=== PATIENT | male | born 1960 | race African-American/Black ===

== ENCOUNTER 2018-04-14 20:54 | Emergency (ER) | payer OTHER ==
[~2018-04-14] VITALS: Ht 170.2 cm; Wt 81.6 kg
[2018-04-14] MEDS ORDERED: IPRATRPIUM/ALBUTEROL 0.5/2.5MG 3 ML NEBU. NEB ONE (21:15)
--- NOTE | 2018-04-14 21:19 | PHYS DOC ---
Past History Past Medical History: High Cholesterol, Hyperthyroid Past Surgical History: No Surgical History Smoking: Quit Greater Than 1 Year (quit in his early 20s) Alcohol Use: None Drug Use: None Adult General Chief Complaint Chief Complaint: COUGH HPI HPI The patient is a very pleasant 57-year-old male who presents to the emergency department for evaluation. He lives near [facility] in [place], and is in this area since this past Thursday, for a conference. He states for the past month, he has had a cough, productive of small amounts of sputum, which she mostly swallows. He has not had any hemoptysis. He states he has had occasional shortness of breath with significant exertion. He denies having had any pain at all, other than a mild frontal headache when he has paroxysms of coughing, and specifically denies having had any chest pain, pleuritic, exertional, or otherwise. Laying flat does not seem to worsen or improve his symptoms. He has not had any nasal congestion. He has not had any fevers or chills. He was given a Z-Osmani about a month ago, as well as some Claritin for possible allergic etiology, but that did not significantly affect his symptoms. He has no prior history of lung disease. There are no alleviating, or exacerbating factors to his symptoms that he is aware of. Review of Systems Review of Systems Constitutional: Denies fever or chills, denies weight loss [] Eyes: Denies change in visual acuity, redness, or eye pain [] HENT: Denies nasal congestion or sore throat [] Respiratory: No additional information not addressed in HPI [] Cardiovascular: No additional information not addressed in HPI [] GI: Denies abdominal pain, nausea, vomiting, bloody stools or diarrhea [] : Denies dysuria or hematuria [] Musculoskeletal: Denies back pain or joint pain [] Neurologic: Denies current headache, focal weakness or sensory changes [] Current Medications Current Medications Current Medications Medications (Trade) Dose Ordered Sig/Jose G Start Time Stop Time Status Last Admin Dose Admin Albuterol/ Ipratropium (Duoneb) 3 ml 1X ONCE 04/14/18 21:15 04/14/18 21:16 Allergies Allergies Allergies Coded Allergies Type Severity Reaction Last Updated Verified No Known Drug Allergies 04/14/18 No Physical Exam Physical Exam PHYSICAL EXAM: CONSTITUTIONAL: Well developed, well nourished, appears physically fit HEAD: normocephalic, atraumatic EENT: PERRL, EOMI. Conjunctivae normal color, sclerae non-icteric; moist mucous membranes. NECK: Supple, non-tender; no meningismus. LUNGS: Lungs CTA, breathing even and unlabored. Normal air movement. HEART: Regular rate and rhythm, no murmur CHEST: No deformity; non-tender ABDOMEN: The abdomen is soft, and non-tender, no masses or bruits. EXTREM: Normal ROM; no deformity, no calf tenderness. Normal pulses palpable in all extremities. There is no pedal edema. SKIN: No rash; no diaphoresis NEURO: Alert; normal speech and cognition; CN's grossly intact; strength grossly intact without focal deficit. BACK: No CVA TTP. Current Patient Data Vital Signs Vital Signs Date Time Temp Pulse Resp B/P (MAP) Pulse Ox O2 Delivery O2 Flow Rate FiO2 04/14/18 21:05 94 18 97 Room Air EKG EKG [Normal sinus rhythm at a rate of 94 bpm, first-degree AV block, with otherwise normal intervals. Poor anterior R-wave progression without acute ischemic ST/T changes.] Radiology/Procedures Radiology/Procedures [ER physician preliminary chest x-ray interpretation: ] There is a small area of patchy infiltrate in the right lower lobe. Course & Med Decision Making Course & Med Decision Making Pertinent Imaging studies reviewed. (See chart for details) [9:40 PM: The patient's condition remains stable. I discussed test results with the patient. He'll be given a course of antibiotics to treat his pneumonia. I discussed importance of close follow-up with his primary care provider upon returning home to [place], he is scheduled to return back home tomorrow. He will be given a copy of his chest x-ray for comparison, and I discussed importance of repeat imaging to ensure resolution of the infiltrate. Other etiologies, such as subtle venous thromboembolic disease, does not appear to be present as the patient is lacking symptoms or signs, or risk factor suggestive of such. The importance of close follow-up and further evaluations of symptoms persist was stressed to the patient.] Dragon Disclaimer Dragon Disclaimer This electronic medical record was generated, in whole or in part, using a voice recognition dictation system. Departure Departure: Impression: Primary Impression: Pneumonia Disposition: HOME, SELF-CARE Condition: STABLE Patient Instructions: Pneumonia, Adult Additional Instructions: Follow-up with your primary care provider for further evaluation and reassessment in the next 5-7 days. If symptoms persist or worsen, or if you develop shortness of breath, increasing pain, or any other new, or concerning symptoms, return to medical care immediately. Further evaluation and a repeat chest x-ray in 2-4 weeks is recommended to ensure resolution of the area of pneumonia. He will be given a copy of your chest x-ray on a disc to bring care primary care provider for comparison. If symptoms persist, further evaluation for an alternate diagnosis is warranted. Scripts Levofloxacin (LEVAQUIN) 500 Mg Tablet 1 TAB PO DAILY, #7 TAB Prov: DORA MARIEE MD 04/14/18 DORA MARIEE MD Apr 14, 2018 21:19
[2018-04-14] MEDS ORDERED: LEVO500T59 PO (21:43)
[2018-04-14 21:45] VITALS: BP 135/71
[2018-04-14] MEDS ORDERED: ACETAMINOPHEN 325 MG TABLET PO ONE (22:00)
--- NOTE | 2018-04-14 22:51 | RAD ---
CHEST PA LATERAL History: wheezing, coughing
no hx of asthma, copd or lung disease Comparison: None. Findings: The cardiomediastinal silhouette is normal. Pulmonary vasculature is normal. The lungs are clear. No pleural effusion or pneumothorax is seen. There is no acute bone abnormality. IMPRESSION: No acute cardiopulmonary process. Electronically signed by: Justice Templeton MD (04/14/2018 10:47 PM) [id number]
--- NOTE | 2018-04-15 11:22 | EKG ---
[address] [address] Test Date: 2018-04-14 Test Time: 21:18:11 Pat Name: STEPHNE DAVIS Department: Room: Gender: M [employer] Technician: : [id number] Requested By: DORA MARIEE Order Number: [id number] Reading MD: Measurements Intervals [place] Rate: 94 P: 47 [place]: 224 QRS: 8 QRSD: 78 T: 56 QT: 324 QTc: 410 Interpretive Statements SINUS RHYTHM PROLONGED [place] INTERVAL ABNORMAL ECG RI6.01 Unconfirmed report No previous ECG available for comparison
== END 2018-04-14 21:59 | disposition home or self-care (01) ==
LOC: ER 20:54
DX: J18.9 Pneumonia, unspecified organism (principal); E78.00 Pure hypercholesterolemia, unspecified; E03.9 Hypothyroidism, unspecified; Z87.891 Personal history of nicotine dependence
CPT/HCPCS: 71046; 93005; 94640; 99284; J7620

== ENCOUNTER 2019-04-06 15:34 | Emergency (ER) | payer OTHER ==
[~2019-04-06 15:34] MED LIST: LEVO500T59 PO
[2019-04-06] MEDS ORDERED: POLY10DR OS (16:02)
--- NOTE | 2019-04-06 16:03 | PHYS DOC ---
Past History Past Medical History: High Cholesterol, Hyperthyroid, Other Additional Past Medical Histor: environmental allergies Past Surgical History: No Surgical History Smoking: Quit Greater Than 1 Year Alcohol Use: Occasionally Drug Use: None Adult General Chief Complaint Chief Complaint: EYE PROBLEMS HPI HPI Patient is a 58-year-old male presents with left eye discomfort and discharge that began yesterday in his been getting worse throughout the course of the day. No change in vision. Patient does wear contact lenses but has taken them out since this started and has been using eyeglasses. No purulent drainage, it is watery in nature. No trauma. No metal on metal pounding recently. Patient has traveled here from [place] for a conference. Symptoms are mild to moderate in intensity. Mild photophobia is present.[] Review of Systems Review of Systems Constitutional: Denies fever or chills [] Eyes: See history of present illness[] HENT: Denies nasal congestion or sore throat [] Respiratory: Denies cough or shortness of breath [] Cardiovascular: No chest pain or palpitations[] GI: Denies abdominal pain, nausea, vomiting, bloody stools or diarrhea [] : Denies dysuria or hematuria [] Musculoskeletal: Denies back pain or joint pain [] Integument: Denies rash or skin lesions [] Neurologic: Denies headache, focal weakness or sensory changes [] Endocrine: Denies polyuria or polydipsia [] All other systems were reviewed and found to be within normal limits, except as documented in this note. Allergies Allergies Allergies Coded Allergies Type Severity Reaction Last Updated Verified No Known Drug Allergies 04/06/19 No Physical Exam Physical Exam Constitutional: Well developed, well nourished, no acute distress, non-toxic appearance. [] HENT: Normocephalic, atraumatic, bilateral external ears normal, oropharynx moist, no oral exudates, nose normal. [] Eyes: PERRLA, EOMI, left eye has conjunctival injection with limbic sparing. Watery discharge is present from the left eye. Anterior chamber is clear, normal retinal exam. The right eye shows: No injection, no discharge. [] Neck: Normal range of motion, no tenderness, supple, no stridor. [] Cardiovascular:Heart rate regular rhythm, no murmur [] Lungs & Thorax: Bilateral breath sounds clear to auscultation [] Abdomen: Not Examined. [] Skin: Warm, dry, no erythema, no rash. [] Back: No tenderness, no CVA tenderness. [] Extremities: No tenderness, no cyanosis, no clubbing, ROM intact, no edema. [] Neurologic: Alert and oriented X 3, normal motor function, normal sensory function, no focal deficits noted. [] Psychologic: Affect normal, judgement normal, mood normal. [] Current Patient Data Vital Signs Vital Signs Date Time Temp Pulse Resp B/P (MAP) Pulse Ox O2 Delivery O2 Flow Rate FiO2 04/06/19 15:44 97.9 80 18 96 Room Air EKG EKG [] Radiology/Procedures Radiology/Procedures [] Course & Med Decision Making Course & Med Decision Making Pertinent Labs and Imaging studies reviewed. (See chart for details) Medical decision making: Patient appears to have conjunctivitis. Will treat with outpatient antibiotics. No evidence of foreign body, uveitis, narrow angle closure glaucoma, nor keratitis. No evidence of foreign body. ED course: Patient arrived, was placed in bed, and tolerated exam well. Discussed findings and plan with the patient who voiced understanding. Patient opted for eyedrops versus an eye ointment. He was discharged in improved condition with all questions answered.[] Dragon Disclaimer Dragon Disclaimer This electronic medical record was generated, in whole or in part, using a voice recognition dictation system. Departure Departure: Impression: Primary Impression: Conjunctivitis, left eye Disposition: HOME, SELF-CARE Condition: IMPROVED Referrals: PCP,NO (PCP) Patient Instructions: Conjunctivitis (Viral and Bacterial) Additional Instructions: Follow-up with your regular doctor in 2 days. If you do not have a regular doctor, list of local clinics to be provided. Do not wear contact lenses until after everything has cleared up. Return to the ER if worsening pain, fever of more than 101�, worsening vision, or any other concerns. Scripts Polymyxin B Sulf/Trimethoprim (POLYTRIM EYE DROPS) 10 Ml Drops 1 DROP OS Q2HR W/A for CONJUNCTIVITIS, #10 ML Prov: RICHY CARDOZA DO 04/06/19 Problem Qualifiers Primary Impression: Conjunctivitis, left eye Conjunctivitis type: acute Acute conjunctivitis type: unspecified Qualified Codes: H10.32 - Unspecified acute conjunctivitis, left eye RICHY CARDOZA DO Apr 06, 2019 16:03
[2019-04-06 16:10] VITALS: BP 135/76
== END 2019-04-06 16:10 | disposition home or self-care (01) ==
LOC: ER 15:34
DX: H10.32 Unspecified acute conjunctivitis, left eye (principal); E78.00 Pure hypercholesterolemia, unspecified; E03.9 Hypothyroidism, unspecified; Z87.891 Personal history of nicotine dependence
CPT/HCPCS: 99283